=== PATIENT | female | born 1930 | race Caucasian/White ===

== ENCOUNTER 2019-03-06 12:57 | Emergency (ER) | payer MEDICARE, OTHER ==
[~2019-03-06] VITALS: Ht 167.6 cm; Wt 67.6 kg
[~2019-03-06 12:57] MED LIST: IBUP400 PO
[2019-03-06] MEDS ORDERED: Simvastatin20 MG PO (14:24)
[2019-03-06] MEDS ORDERED: METO50ER PO (14:24)
[2019-03-06] MEDS ORDERED: LOSA25 PO (14:24)
== END 2019-03-06 15:18 | disposition home or self-care (01) ==
LOC: ER 12:57
DX: S00.03XA Contusion of scalp, initial encounter (principal); S40.022A Contusion of left upper arm, initial encounter; W01.198A Fall on same level from slipping, tripping and stumbling with subsequent striking against other object, initial encounter
CPT/HCPCS: 70450; 99283-25